=== PATIENT | male | born 1985 | race Caucasian/White ===

== ENCOUNTER → 2018-05-17 | Outpatient (CLI) | payer OTHER, MEDICAID | LOC: M RAD 09:11 | DX: M51.26 Other intervertebral disc displacement, lumbar region (principal); M51.27 Other intervertebral disc displacement, lumbosacral region; M54.40 Lumbago with sciatica, unspecified side | CPT/HCPCS: 72148 ==

== ENCOUNTER → 2020-10-16 | Outpatient (CLI) | payer SELFPAY | LOC: M LABSMTC 11:35 | PROVIDERS: ATTEND Pediatrics | DX: Z20.828 Contact with and (suspected) exposure to other viral communicable diseases (principal) ==

== ENCOUNTER → 2021-04-26 | Outpatient (CLI) | payer OTHER, MEDICAID ==
--- NOTE | 2021-04-26 15:39 | REP ---
INDICATION: PAIN IN LEFT WRIST. COMPARISON: None. TECHNIQUE: Four views FINDINGS: No acute fracture or destructive osseous lesion. IMPRESSION: Within normal limits <Electronically signed by Fidel Cook > 04/26/21 [id number]
== END ==
LOC: M RAD 14:47
PROVIDERS: ATTEND Student in an Organized Health Care Education/Training Program
DX: M25.532 Pain in left wrist (principal)

== ENCOUNTER → 2021-08-15 | Outpatient (CLI) | payer OTHER ==
[~2021-08-15] MED LIST: ONDA4TAB6 PO
[2021-08-15 09:15] LABS: BASO # 0.1 10^3/uL (0.0-0.2); BASO % 0.9 % (0.0-1.0); EOS # 0.4 10^3/uL (0.0-0.5); EOS % 4.3 % (0.0-3.0); HEMATOCRIT 45.5 % (42.0-52.0); HEMOGLOBIN 15.6 g/dl (13.5-17.5); LYMPH % 24.7 % (24.0-44.0); MEAN CORPUSCULAR HEMOGLOBIN 29.9 pg (27.0-33.0); MEAN CORPUSCULAR HGB CONC 34.3 g/dl (32.0-36.5); MEAN CORPUSCULAR VOLUME 87.3 fl (80.0-96.0); MONO # 0.6 10^3/uL (0.0-0.8); MONO % 6.8 % (2.0-8.0); NEUTROPHILS # 5.2 10^3/uL (1.5-8.5); NEUTROPHILS % 62.8 % (36.0-66.0); PLATELET COUNT, AUTOMATED 230 10^3/uL (150-450); RED BLOOD COUNT 5.21 10^6/uL (4.30-6.10); WHITE BLOOD COUNT 8.2 10^3/uL (4.0-10.0)
[2021-08-15 09:44] LABS: ALBUMIN 3.7 GM/DL (3.2-5.2); ALT/SGPT 41 U/L (12-78); AMYLASE 166 U/L (25-115); BILIRUBIN,TOTAL 0.5 MG/DL (0.2-1.0); BLOOD UREA NITROGEN 15 MG/DL (7-18); CARBON DIOXIDE LEVEL 24 MEQ/L (21-32); CHLORIDE LEVEL 112 MEQ/L (98-107); CREATININE FOR GFR 1.13 MG/DL (0.70-1.30); GLOMERULAR FILTRATION RATE > 60.0 (>60); GLUCOSE, FASTING 93 MG/DL (70-100); LIPASE 646 U/L (73-393); POTASSIUM SERUM 4.4 MEQ/L (3.5-5.1); SODIUM LEVEL 142 MEQ/L (136-145); TOTAL PROTEIN 6.7 GM/DL (6.4-8.2)
--- NOTE | 2021-08-15 11:50 | REP ---
INDICATION: ABD PAIN PT NEEDS LABS AFTER US. COMPARISON: None. TECHNIQUE: Real-time sonographic evaluation of right upper quadrant performed. FINDINGS: The gallbladder demonstrates no evidence of intraluminal sludge or calculi, wall thickening or pericholecystic fluid. There is no intrahepatic or extrahepatic biliary dilatation, common bile duct measures 4 mm in maximum diameter. The liver demonstrates slightly increased echotexture suggesting fatty infiltration, with no gross mass. The visualized pancreas is grossly unremarkable, not optimally seen due to overlying bowel gas. The right kidney demonstrates no hydronephrosis, with a normal size of 10.8 cm in length. No free fluid is seen. IMPRESSION: Possible fatty infiltration of the liver. Otherwise negative right upper quadrant ultrasound. <Electronically signed by Bakari Diaz > 08/15/21 1856
== END ==
LOC: M RAD 08:25
PROVIDERS: ATTEND Student in an Organized Health Care Education/Training Program
DX: R10.11 Right upper quadrant pain (principal)

== ENCOUNTER 2021-08-16 12:58 | Emergency (ER) | payer OTHER ==
[~2021-08-16] VITALS: Ht 177.8 cm; Wt 102.8 kg
--- OUTSIDE RECORDS SUMMARY | 2021-08-16 13:10 | CCD ---
Author Author [facility] Organization [facility] Address Unknown Phone Unavailable Support Name Relationship Address Phone [facility] Next Of Kin [address] [place] [address] UNKNOWN, UNKNOWN Next Of Kin / / /, / / Unavailable [employer] Next Of Kin [id number] [place] [address] [address] [place] [address] [id number] [place] Next Of Kin [address] [place] [id number] [place] Next Of Kin [address] [place] [address] [employer] Next Of Kin [address] [place] [address] UNEMPLOYED Next Of Kin Unknown Unavailable [employer] Next Of [facility] [address] [place] [address] [employer] [place] ECON [address] [place] [address] Unavailable Re-disclosure Warning The records that you are about to access may contain information from federally-assisted alcohol or drug abuse programs. If such information is present, then the following federally mandated warning applies: This information has been disclosed to you from records protected by federal confidentiality rules (42 CFR part 2). The federal rules prohibit you from making any further disclosure of this information unless further disclosure is expressly permitted by the written consent of the person to whom it pertains or as otherwise permitted by 42 CFR part 2. A general authorization for the release of medical or other information is NOT sufficient for this purpose. The Federal rules restrict any use of the information to criminally investigate or prosecute any alcohol or drug abuse patient.The records that you are about to access may contain highly sensitive health information, the redisclosure of which is protected by Article 27-F of the [facility] Public Health law. If you continue you may have access to information: Regarding HIV / AIDS; Provided by facilities licensed or operated by the [facility] Office of Mental Health; or Provided by the [facility] Office for People With Developmental Disabilities. If such information is present, then the following [facility] mandated warning applies: This information has been disclosed to you from confidential records which are protected by state law. State law prohibits you from making any further disclosure of this information without the specific written consent of the person to whom it pertains, or as otherwise permitted by law. Any unauthorized further disclosure in violation of state law may result in a fine or residential sentence or both. A general authorization for the release of medical or other information is NOT sufficient authorization for further disc losure. Encounters Encounter Providers Location Date Indications Data Source(s ) Out[place] [address] [facility] [address] 08/04/2021 12:00:00 AM EDT eCW1 ([facility]) Outpatient [address] [facility] [address] 04/26/2021 12:00:00 AM EDT eCW1 ([facility]) Immunizations Vaccine Date Status Description Data Source(s) COVID-19 VACCINE Moderna 02/15/2021 12:00:00 AM EDT completed [facility] Vaccine Series Complete: YESThis Data wa s Submitted to [facility]. COVID-19 VACC,MRNA(MODERNA)/PF 02/15/2021 12:00:00 AM EDT completed [facility] COVID-19 VACCINE Moderna 01/20/2021 12:00:00 AM EDT completed [facility] Vaccine Series Complete: NOThis Data was Submitted to [facility] [employer]. COVID-19 VACCINE, MRNA-1273, LNP-S (MODERNA)/PF 01/20/2021 1 2:00:00 AM EDT completed [facility] Medications Medication Brand Name Start Date Product Form Dose Route Admi nistrative Instructions Pharmacy Instructions Status Indications Reaction Description Data Source(s) 300 mg 01/02/2021 12:00:00 AM EDT capsule 90 TAKE 1 CAPSULE BY MOUTH THREE TIMES A DAY TAKE 1 CAPSULE BY MOUTH THREE TIMES A DAY SOLD: 01/03/2021 [facility] Insurance Providers Payer name Policy type / Coverage type Policy ID Covered libertarian ID Covered libertarian's relationship to morales Policy Morales Plan Information Medicaid [place] Medigap Part B [id number] Self [id number] [facility] [employer] Blue Option Medigap Part B [id number] Self [id number] [employer] Blue Option Medigap Part B [id number] Self [id number] [facility] [employer] Blue Option Medigap Part B [id number] Self [id number] BS [employer] Blue Option Medigap Part B [id number] [id number] Self [id number] BS [place] [employer] [id number] Self [id number] BS [place] [id number] Self [id number] BS [place] [id number] Self [id number] BS [place] [id number] Self [id number] [facility] [id number] S [id number] MV MCDHMO [id number] SP [id number] [facility] [id number] SP [id number] MEDICAID [id number] SP [id number] [facility] [place] [id number] S [id number] ANSI-Commercial [id number] ANSI-Commercial [id number] ANSI-Medicaid [id number] ANSI-Commercial [id number] ANSI-Commercial [id number] ANSI-Commercial [id number] ANSI-Medicaid [id number] ANSI-Commercial [id number] [facility] [id number] ANSI-Commercial [id number] ANSI-Commercial [id number] ANSI-Commercial [id number] ANSI-Medicaid [id number] ANSI-Commercial [id number] ANSI-Commercial [id number] MEDICAID [id number] S [id number] ANSI-Medicaid [id number] ANSI-Commercial [id number] ANSI-Commercial [id number] ANSI-Commercial [id number] [facility] O [id number] S [id number] ANSI-Medicaid [id number] ANSI-Commercial [id number] ANSI-Commercial [id number] ANSI-Commercial [id number] MEDICAID [id number] SP [id number] [facility] [id number] S [id number] [facility] [id number] S [id number] BCBS EXCELLUS [id number] S PYN [id number] SELF PAY SP UNAVAILABLE UNAVAILA BLE BCBS OF [place] [id number] S PYN [id number] [facility] MEDICAID [facility] HMO [id number] S [id number] [facility](MCAID) O [id number] S [id number] UNHC AMERICHOICE XIX -HMO [id number] 18 [id number] UNHC AMERICHOICE XIX -HMO [id number] 18 [id number] MEDICAID W [id number] S [id number] BCBS CNY O [id number] S [id number] MEDICAID GME W [id number] S [id number] P BLUE CHOICE OPTION O [id number] MEDICAID [place] [id number] S [id number] BCBS HMO BLUE BC [id number] S [id number] [id number] [facility] [id number] SP [id number] [place] [id number] SP [id number] P MVP MCDHMO [id number] SP [id number] [place] [id number] SP [id number] SELF PAY ONLY [id number] SP [id number] [facility] [place] [id number] S [id number] [facility] [id number] S [id number] [employer] [id number] S [id number] ANSI-Commercial [id number] ANSI-Commercial [id number] ANSI-Medicaid [id number] ANSI-Commercial [id number] [facility] PHYSICIAN [id number] S [id number] ANSI-Commercial [id number] Problems, Conditions, and Diagnoses No Information Surgeries/Procedures No Information Results ID Date Data Source [facility] Wrist, complete 04/26/2021 12:00:00 AM EDT eCW1 ([facility]) Name Value Range Interpretation Code Description Data Alla rce(s) Supporting Document(s) [facility] Wrist, complete eCW1 ([facility]) ID Date Data Source [id number] 10/16/2020 12:00:00 AM EST [facility] Name Value Range Interpretation Code Description Data Alla rce(s) Supporting Document(s) SARS-CoV-2 (COVID-19) RNA [Presence] in Respiratory specimen by ZOË with probe detection [facility] This lab was ordered by [facility] and reported by [facility]. Procedure Social History Code Duration Value Status Description Data Source(s ) Smoking 08/04/2021 12:00:00 AM EDT Never Smoker completed Never S moker eCW1 (Replaced By [facility]) Smoking 04/26/2021 12:00:00 AM EDT Never Smoker completed Never S moker eCW1 (Replaced By [facility]) Vital Signs ID Date Data Source UNK Name Value Range Interpretation Code Description Data Source(s) Body weight 226.4 [lb_av] 226.4 [lb_av] eCW1 ([facility]) Body weight 102.69 kg 102.69 kg W1 ([facility]) Body height 70.5 [in_i] 70.5 [in_i] [facility] Body mass index (BMI) [Ratio] 32.02 kg/m2 32.02 kg/m2 eCW1 (Replaced By [facility]) Heart rate 73 /min 73 /min eCW1 ([facility]) Respiratory rate 18 /min 18 /min eCW1 ([facility]) Body temperature 97.7 [degF] 97.7 [degF] eCW1 ( Replaced By [facility]) Systolic blood pressure 119 mm[Hg] 119 mm[Hg] e CW1 (Replaced By [facility]) Diastolic blood pressure 73 mm[Hg] 73 mm[Hg] eCW1 (Replaced By [facility]) Respiratory rate 16 /min 16 /min eCW1 ([facility]) Body temperature 98.9 [degF] 98.9 [degF] eCW1 ( Replaced By [facility]) Systolic blood pressure 102 mm[Hg] 102 mm[Hg] e CW1 (Replaced By [facility]) Diastolic blood pressure 72 mm[Hg] 72 mm[Hg] eCW1 (Replaced By [facility]) Body weight 224 [lb_av] 224 [lb_av] [facility] Body height 70.5 [in_i] 70.5 [in_i] [facility] Body mass index (BMI) [Ratio] 31.68 kg/m2 31.68 kg/m2 eCW1 (Replaced By [facility]) Heart rate 69 /min 69 /min eCW1 ([facility])
--- OUTSIDE RECORDS SUMMARY | 2021-08-16 13:10 | CCD ---
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 Name Role Phone Shu Ibarra Unavailable PROBLEMS No Information ALLERGIES Allergen (clinical drug ingredient) Drug/Non Drug Allergy do cumented on EMR Reaction Allergy Type Onset Date Status Bee Sting as a kid Drug Allergy Active ENCOUNTERS from 1983 to 2021-08-08 Encounter Location Date Provider Diagnosis [facility] [address] [facility] [phone] [place] [address] Jul, Shu Ibarra Right upper quadrant abdomin al pain R10.11 IMMUNIZATIONS No Information SOCIAL HISTORY Tobacco Use: Social History Observation Description Date Details (start date - stop date) Never Smoker Sex Assigned At : Social History Observation Description Sex Assigned At Unknown Education: Question Answer Notes Level of Education: Not Finished College Audit Question Answer Notes Total Score: 2 Interpretation: Alcohol Education Language: Question Answer Notes Languages spoken: Pashto Yazidi: Question Answer Notes Yazidi 33 None Sexual Hx: Question Answer Notes Had sex in the last 12 months (vaginal, oral, or anal)? Yes Have you ever had an STD? No with Women only Use protection? Yes How often? Half the time Drug and Alcohol Question Answer Notes Total Score: 0 Interpretation: No problems reported Alcohol Screening: Question Answer Notes Did you have a drink containing alcohol in the past year? No Points 0 Interpretation Negative Tobacco Use: Question Answer Notes Are you a: never smoker REASON FOR REFERRAL No Information VITAL SIGNS Weight 226.4 lbs Jul, Weight-kg 102.69 kg Jul, Height 70.5 in Jul, BMI 32.02 kg/m2 Jul, Heart Rate 73 /min Jul, Respiratory Rate 18 /min Jul, Temperature 97.7 degrees Fahrenheit Jul, Oximetry 97 Jul, Blood pressure systolic 119 mm Hg Jul, Blood pressure diastolic 73 mm Hg Jul, MEDICATIONS Medication SIG (Take, Route, Frequency, Duration) Notes Start Da te End Date Status Gabapentin 300 MG 1 capsule Orally prn Active PROCEDURES No Information RESULTS No Results REASON FOR VISIT GALLBLADDER/GI PROBLEMS/POOPING BILE [phone] MEDICAL (GENERAL) HISTORY Type Description Date Medical History chronic migraines Medical History vertigo Surgical History right elbow/carpal tunnel 2017 Hospitalization History migraine 4 days 2010 Goals Section No Information Health Concerns No Information MEDICAL EQUIPMENT No Information MENTAL STATUS No Information FUNCTIONAL STATUS No Information ASSESSMENTS Encounter Date Diagnosis Assessment Notes Treatment Notes Treatm ent Clinical Notes Jul, Right upper quadrant abdominal pain (ICD-10 - R1 0.11) Suspect right upper quadrant abdominal pain to be from biliary colic. Patient remains afebrile and vital signs within normal limits. Will further assess with right upper quadrant ultrasound and blood work. Advised patient to avoid any large or fatty meals. Advised small meals multiple times per day instead. Advised llwa-nwg-skhxoof Tylenol or ibuprofen to help with pain, however, if any worsening abdominal pain or fevers develop, proceed to ED immediately. Patient expressed understanding and agreed with plan. PLAN OF TREATMENT Treatment Notes Assessment Notes Clinical Notes Right upper quadrant abdominal pain Susp ect right upper quadrant abdominal pain to be from biliary colic. Patient remains afebrile and vital signs within normal limits. Will further assess with right upper quadrant ultrasound and blo od work. Advised patient to avoid any large or fatty meals. Advised small meals multiple times per day instead. Advised fwki-iux-pkmroxx Tylenol or ibuprofen to help with pain, however, if any worsening abdominal pain or fevers develop, proceed to ED immediately. Patient expressed understanding and agreed with plan. Treatment Notes Test Name Order Date [facility] LIVER US 2021-08-04 Comprehensive Metabolic Profile (CMP) 2021-08-04 LIPASE 2021-08-04 CBC with Differential 2021-08-04 AMYLASE 2021-08-04 Next Appt Details 4 Weeks Reason:for non-resolving abd lamar n, or sooner if needed Follow Up:4 Weeksfor non-resolving abd pain, or sooner if needed Insurance Providers Payer Name Payer Address Payer Phone Insured Name Patient Relati onship to Insured Coverage Start Date Coverage End Date [facility] [address] [place] [address] HEMALATHA TELLEZ
--- OUTSIDE RECORDS SUMMARY | 2021-08-16 16:04 | CCD ---
Author Author [facility] Organization [facility] Address Unknown Phone Unavailable Support Name Relationship Address Phone [facility] Next Of Kin [address] [place] [address] UNKNOWN, UNKNOWN Next Of Kin / / /, / / Unavailable [facility] Next Of Kin [id number] [place] [address] [address] [employer] [place] [address] [id number] [place] Next Of Kin [address] [place] [id number] [place] Next Of Kin [address] [place] [address] [employer] Next Of Kin [address] [place] [address] UNEMPLOYED Next Of Kin Unknown Unavailable [employer] Next Of [facility] [address] [place] [address] [employer] ECON [address] [place] [address] Unavailable Re-disclosure Warning The records that you [...] is protected by Article 27-F of the [facility] Public Health law. If you continue you may have access to information: Regarding HIV / AIDS; Provided by facilities licensed or operated by the [facility] Office of Mental Health; or Provided by the [facility] Office for People With Developmental Disabilities. If such information is present, then the following [facility] mandated warning applies: This information has [...] law may result in a fine or shelter sentence or both. A general authorization for the release of medical or other information is NOT sufficient authorization for further disc losure. Encounters Encounter Providers Location Date Indications Data Source(s ) [place] [address] [facility] [address] 08/04/2021 12:00:00 AM EDT eCW1 ([facility]) [place] [address] [facility] [address] 04/26/2021 12:00:00 AM EDT eCW1 ([facility]) Immunizations Vaccine Date Status Description Data Source(s) COVID-19 VACCINE Moderna 02/15/2021 12:00:00 AM EDT completed [facility] Vaccine Series Complete: YESThis Data wa s Submitted to [facility]. COVID-19 VACC,MRNA(MODERNA)/PF 02/15/2021 12:00:00 AM EDT completed [facility] COVID-19 VACCINE Moderna 01/20/2021 12:00:00 AM EDT completed [facility] Vaccine Series Complete: NOThis Data was Submitted to [facility]. COVID-19 VACCINE, MRNA-1273, LNP-S (MODERNA)/PF 01/20/2021 1 [...] type / Coverage type Policy ID Covered constitution party ID Covered constitution party's relationship to morales Policy Morales Plan Information Medicaid [place] Medigap Part B [id number] Self [id number] [facility] Blue Option Medigap Part B [id number] Self [id number] BS [place] [facility] Blue Option Medigap Part B [id number] Self [id number] BS [place] [facility] Blue Option Medigap Part B [id number] [id number] Self [id number] BS [place] [employer] Blue Option Medigap Part B [id number] Self [id number] BS [place] [employer] [id number] [id number] Self [id number] BS [place] [employer] [id number] [id number] Self [id number] BS [place] [employer] [id number] [id number] Self [id number] BS [place] [employer] [id number] Self [id number] [facility] [id number] S [id number] MV MCDHMO [id number] SP [id number] [facility] [id number] SP [id number] MEDICAID [id number] SP [id number] [facility] [place] [id number] S [id number] ANSI-Commercial [id number] ANSI-Commercial [id number] ANSI-Medicaid [id number] ANSI-Commercial [id number] ANSI-Commercial [id number] ANSI-Commercial [id number] ANSI-Medicaid [id number] ANSI-Commercial [id number] [place]-Medicaid [id number] ANSI-Commercial [id number] ANSI-Commercial [id number] ANSI-Commercial [id number] ANSI-Medicaid [id number] ANSI-Commercial [id number] ANSI-Commercial [id number]-[id number] [id number] MEDICAID [id number] S [id number] ANSI-Medicaid [id number] ANSI-Commercial [id number] ANSI-Commercial [id number] ANSI-Commercial [id number] [facility] O [id number] S [id number] ANSI-Medicaid [id number] ANSI-Commercial [id number] ANSI-Commercial [id number] ANSI-Commercial [id number] MEDICAID [id number] SP [id number] [facility] [id number] S [id number] [facility] [id number] S [id number] BCBS EXCELLUS [id number] S PYN [id number] SELF PAY SP UNAVAILABLE UNAVAILA BLE BCBS OF [place] [id number] S PYN [id number] [facility] MEDICAID [facility] HMO [id number] S [id number] [facility](MCAID) O [id number] S [id number] UNHC AMERICHOICE XIX -HMO [id number] 18 [id number] UNHC AMERICHOICE XIX -HMO [id number] 18 [id number] MEDICAID W [id number] S [id number] BCBS CNY O [id number] S [id number] MEDICAID GME W [id number] S [id number] P BLUE CHOICE OPTION O [id number] S [id number] MEDICAID [place] [id number] S [id number] BCBS HMO BLUE BC [id number] S [id number] [id number] [facility] [id number] SP [id number] [place] [id number] SP [id number] P MVP MCDHMO [id number] SP [id number] [place] [id number] SP [id number] SELF PAY ONLY [id number] SP [id number] [facility] [place] [id number] S [id number] BCBS [facility] [id number] S [id number] [employer] [id number] S [id number] ANSI-Commercial [id number] ANSI-Commercial [id number] ANSI-Medicaid [id number] ANSI-Commercial [id number] [facility] [id number] S [id number] ANSI-Commercial [id number] Problems, Conditions, and Diagnoses No Information Surgeries/Procedures No Information Results ID Date Data Source [facility] Wrist, complete 04/26/2021 12:00:00 AM EDT eCW1 ([facility]) Name Value Range Interpretation Code Description Data Alla rce(s) Supporting Document(s) [facility] Wrist, complete eCW1 ([facility]) ID Date Data Source [id number] 10/16/2020 12:00:00 AM EST [facility] Name Value Range Interpretation Code Description Data Alla rce(s) Supporting Document(s) SARS-CoV-2 (COVID-19) RNA [Presence] in Respiratory specimen by ZOË with probe detection [facility] This lab was ordered by [facility] and reported by [facility]. Procedure Social History Code Duration Value Status Description Data Source(s ) Smoking 08/04/2021 12:00:00 AM EDT Never Smoker completed Never S moker eCW1 ([facility]) Smoking 04/26/2021 12:00:00 AM EDT Never Smoker completed Never S moker eCW1 ([facility]) Vital Signs ID Date Data Source UNK Name Value Range Interpretation Code Description Data Source(s) Body weight 226.4 [lb_av] 226.4 [lb_av] eCW1 ([facility]) Body weight 102.69 kg 102.69 kg W1 ([facility]) Body height 70.5 [in_i] 70.5 [in_i] eCW1 ([facility]) Body mass index (BMI) [Ratio] 32.02 kg/m2 32.02 kg/m2 eCW1 ([facility]) Respiratory rate 18 /min 18 /min eCW1 ([facility]) Heart rate 73 /min 73 /min eCW1 ([facility]) Body temperature 97.7 [degF] 97.7 [degF] eCW1 ( [facility]) Systolic blood pressure 119 mm[Hg] 119 mm[Hg] e CW1 ([facility]) Diastolic blood pressure 73 mm[Hg] 73 mm[Hg] eCW1 ([facility]) Respiratory rate 16 /min 16 /min eCW1 ([facility]) Body temperature 98.9 [degF] 98.9 [degF] eCW1 ( [facility]) Systolic blood pressure 102 mm[Hg] 102 mm[Hg] e CW1 ([facility]) Diastolic blood pressure 72 mm[Hg] 72 mm[Hg] eCW1 ([facility]) Body weight 224 [lb_av] 224 [lb_av] eCW1 ([facility]) Body height 70.5 [in_i] 70.5 [in_i] eCW1 ([facility]) Body mass index (BMI) [Ratio] 31.68 kg/m2 31.68 kg/m2 eCW1 ([facility]) Heart rate 69 /min 69 /min eCW1 ([facility])
[2021-08-16] MEDS ORDERED: NS 1,000 ML IV ONE ×2 (16:40→21:00)
[2021-08-16] MEDS ORDERED: ONDANSETRON 4MG/2ML VIAL IV ONE (16:40)
[2021-08-16] MEDS ORDERED: ISOVUE-370 76% 100ML VIAL As Ordered ONE (19:37)
[2021-08-16 20:00] LABS: BASO # 0.1 10^3/uL (0.0-0.2); BASO % 0.6 % (0.0-1.0); EOS # 0.4 10^3/uL (0.0-0.5); EOS % 3.8 % (0.0-3.0); HEMATOCRIT 46.2 % (42.0-52.0); HEMOGLOBIN 15.5 g/dl (13.5-17.5); LYMPH # 3.2 10^3/uL (1.5-5.0); LYMPH % 30.9 % (24.0-44.0); MEAN CORPUSCULAR HEMOGLOBIN 29.8 pg (27.0-33.0); MEAN CORPUSCULAR HGB CONC 33.5 g/dl (32.0-36.5); MEAN CORPUSCULAR VOLUME 88.8 fl (80.0-96.0); MONO # 0.6 10^3/uL (0.0-0.8); MONO % 5.8 % (2.0-8.0); NEUTROPHILS % 58.5 % (36.0-66.0); PLATELET COUNT, AUTOMATED 248 10^3/uL (150-450); WHITE BLOOD COUNT 10.2 10^3/uL (4.0-10.0)
[2021-08-16 20:33] LABS: ALT/SGPT 45 U/L (12-78); BILIRUBIN,DIRECT 0.2 MG/DL (0.0-0.2); BILIRUBIN,TOTAL 0.9 MG/DL (0.2-1.0); BLOOD UREA NITROGEN 11 MG/DL (7-18); CARBON DIOXIDE LEVEL 28 MEQ/L (21-32); CHLORIDE LEVEL 108 MEQ/L (98-107); CREATININE FOR GFR 1.31 MG/DL (0.70-1.30); GLOMERULAR FILTRATION RATE > 60.0 (>60); GLUCOSE, FASTING 84 MG/DL (70-100); LIPASE 487 U/L (73-393); POTASSIUM SERUM 3.7 MEQ/L (3.5-5.1); SODIUM LEVEL 141 MEQ/L (136-145)
--- NOTE | 2021-08-16 20:34 | REPVR ---
PROCEDURE INFORMATION: Exam: CT Abdomen And Pelvis With Contrast Exam date and time: 08/16/2021 7:52 PM Age: 36 years old Clinical indication: Abdominal pain; Generalized; Additional info: Abdominal pain elevated lipase normal gb u/s TECHNIQUE: Imaging protocol: Computed tomography of the abdomen and pelvis with contrast. Radiation optimization: All CT scans at this facility use at least one of these dose optimization techniques: automated exposure control; mA and/or kV adjustment per patient size (includes targeted exams where dose is matched to clinical indication); or iterative reconstruction. Contrast material: ISOVUE 370; Contrast volume: 100 ml; Contrast route: INTRAVENOUS (IV); COMPARISON: LIVER US 08/15/2021 8:36 AM FINDINGS: Liver: There is a diffuse decrease in hepatic parenchymal density, consistent with steatosis. Gallbladder and bile ducts: Normal. No calcified stones. No ductal dilation. Pancreas: Normal. No ductal dilation. Spleen: Normal. No splenomegaly. Adrenal glands: Normal. No mass. Kidneys and ureters: Normal. No hydronephrosis. Stomach and bowel: Unremarkable. No obstruction. No mucosal thickening. Appendix: No evidence of appendicitis. Intraperitoneal space: Unremarkable. No free air. No significant fluid collection. Vasculature: Unremarkable. No abdominal aortic aneurysm. Lymph nodes: Unremarkable. No enlarged lymph nodes. Urinary bladder: Unremarkable as visualized. Reproductive: Unremarkable as visualized. Bones/joints: Mild central spinal stenosis L4-L5. Soft tissues: Small umbilical hernia without incarceration. IMPRESSION: 1. There is a diffuse decrease in hepatic parenchymal density, consistent with steatosis. 2. No acute findings. Electronically signed by: Davide Leija On 08/16/2021 20:34:09 PM
[2021-08-16] MEDS ORDERED: ACETAMINOPHEN 500 MG TAB PO ONE (21:00)
[2021-08-16] MEDS ORDERED: ONDA4TAB6 PO (22:18)
[2021-08-16 23:41] VITALS: BP 123/79
== END 2021-08-16 23:43 | disposition home or self-care (01) ==
LOC: M ED 12:58
DX: R74.8 Abnormal levels of other serum enzymes (principal); E86.0 Dehydration; K76.0 Fatty (change of) liver, not elsewhere classified; F12.20 Cannabis dependence, uncomplicated
CPT/HCPCS: 74177; 80053; 82150; 82248; 83690; 85025; 96361; 96374; 99284; J2405; Q9967

== ENCOUNTER → 2022-05-11 | Outpatient (CLI) | payer OTHER ==
[2022-05-11 19:40] LABS: ALBUMIN 3.8 GM/DL (3.2-5.2); ALT/SGPT 35 U/L (12-78); AMYLASE 79 U/L (25-115); BILIRUBIN,DIRECT < 0.1 MG/DL (0.0-0.2); BILIRUBIN,TOTAL 0.3 MG/DL (0.2-1.0); LIPASE 170 U/L (73-393); TOTAL PROTEIN 6.4 GM/DL (6.4-8.2)
[2022-05-14 19:06] LABS: ALPHA 1 ANTITRYPSIN 122 mg/dL (95-164); TISSUE TRANSGLUTAMINASE IgA <2 U/mL (0-3)
== END ==
LOC: M LAB 15:49
PROVIDERS: ATTEND Internal Medicine Gastroenterology
DX: R74.8 Abnormal levels of other serum enzymes (principal)

== ENCOUNTER → 2022-06-20 | Outpatient (CLI) | payer OTHER ==
[~2022-06-20] MED LIST changes: +PROHANCE 279.3MG/ML 15ML VIAL As Ordered ONE; +PROHANCE 279.3MG/ML 5ML VIAL As Ordered ONE
== END ==
LOC: M RAD 09:16
PROVIDERS: ATTEND Internal Medicine Gastroenterology
DX: K85.90 Acute pancreatitis without necrosis or infection, unspecified (principal); K86.9 Disease of pancreas, unspecified; K86.1 Other chronic pancreatitis; K76.0 Fatty (change of) liver, not elsewhere classified
CPT/HCPCS: 74183; A9576

== ENCOUNTER → 2024-08-10 | Outpatient (CLI) | payer OTHER ==
[~2024-08-10] MED LIST changes: +ONDA-282 PO; -ONDA4TAB6 PO; -PROHANCE 279.3MG/ML 15ML VIAL As Ordered ONE; +PROHANCE 279.3MG/ML 15ML VIAL ONE; -PROHANCE 279.3MG/ML 5ML VIAL As Ordered ONE; +PROHANCE 279.3MG/ML 5ML VIAL ONE
== END ==
LOC: M PLAIMG 12:31
PROVIDERS: ATTEND Ophthalmology
DX: H49.11 Fourth [trochlear] nerve palsy, right eye (principal)

== ENCOUNTER → 2024-11-06 | Outpatient (REF) | payer OTHER ==
[~2024-11-06] MED LIST changes: -PROHANCE 279.3MG/ML 15ML VIAL ONE; -PROHANCE 279.3MG/ML 5ML VIAL ONE
[2024-11-06 18:56] LABS: BASO # 0.1 10^3/uL (0.0-0.2); BASO % 0.4 % (0.0-1.0); EOS % 0.3 % (0.0-3.0); HEMATOCRIT 45.5 % (42.0-52.0); HEMOGLOBIN 15.2 g/dl (13.5-17.5); LYMPH # 2.8 10^3/uL (1.5-5.0); LYMPH % 23.2 % (24.0-44.0); MEAN CORPUSCULAR HEMOGLOBIN 30.2 pg (27.0-33.0); MEAN CORPUSCULAR HGB CONC 33.4 g/dl (32.0-36.5); MEAN CORPUSCULAR VOLUME 90.5 fl (80.0-96.0); MONO # 0.7 10^3/uL (0.0-0.8); MONO % 5.7 % (2.0-8.0); NEUTROPHILS # 8.4 10^3/uL (1.5-8.5); PLATELET COUNT, AUTOMATED 258 10^3/uL (150-450); RED BLOOD COUNT 5.03 10^6/uL (4.30-6.10)
[2024-11-06 19:04] LABS: THYROID STIMULATING HORMONE 1.025 uIU/ML (0.55-4.78)
[2024-11-06 19:06] LABS: TOTAL 25(OH) VITAMIN D 16.2 NG/ML (20.0-100.0)
[2024-11-06 19:07] LABS: VITAMIN B12 LEVEL 451 PG/ML (211-911)
[2024-11-06 19:08] LABS: ALBUMIN 4.2 G/DL (3.2-5.2); ALKALINE PHOSPHATASE 81 U/L (40-129); ALT/SGPT 36 U/L (7.0-40); AST/SGOT 24 U/L (<34); BILIRUBIN,TOTAL 0.5 MG/DL (0.3-1.2); BLOOD UREA NITROGEN 13 MG/DL (9-23); CALCIUM LEVEL 8.9 MG/DL (8.5-10.1); CARBON DIOXIDE LEVEL 26 MMOL/L (20-31); CHLORIDE LEVEL 107 MMOL/L (98-107); CHOLESTEROL LEVEL 172 MG/DL (<200); CHOLESTEROL RISK RATIO 5.89 (<5); CREATININE FOR GFR 1.03 MG/DL (0.70-1.30); GLOMERULAR FILTRATION RATE > 60.0 (>60); GLUCOSE, FASTING 83 MG/DL (60-100); HDL CHOLESTEROL 29.2 MG/DL (>40); LDL CHOLESTEROL 96.8 MG/DL (<100); NON-HDL-C 142.8 MG/DL; POTASSIUM SERUM 3.9 MMOL/L (3.5-5.1); SODIUM LEVEL 141 MMOL/L (136-145); TOTAL PROTEIN 6.7 G/DL (5.7-8.2); TRIGLYCERIDES LEVEL 230 MG/DL (<150)
[2024-11-06 19:53] LABS: HEMOGLOBIN A1c 5.2 % (4.0-6.0)
== END ==
LOC: M SFHCLERA 14:30
DX: G43.109 Migraine with aura, not intractable, without status migrainosus (principal); Z76.89 Persons encountering health services in other specified circumstances; R42 Dizziness and giddiness; H49.10 Fourth [trochlear] nerve palsy, unspecified eye

== ENCOUNTER → 2025-01-27 | Outpatient (CLI) | payer OTHER | LOC: M PLAIMG 09:07 | PROVIDERS: ATTEND Student in an Organized Health Care Education/Training Program | DX: M54.50 Low back pain, unspecified (principal) ==